=== PATIENT | female | born 1985 | race Caucasian/White ===

== ENCOUNTER 2017-04-11 22:06 | Emergency (ER) | payer OTHER, MEDICAID ==
[~2017-04-11] VITALS: Ht 162.6 cm; Wt 95.3 kg
[~2017-04-11 22:06] MED LIST: ACETAMINOPHEN-1 EAC1 PO; AFRIN15 ML NS; AMOXICILLIN500 M1 PO; ANTIVERT25 MG PO; ASPIR 8181 MG; AZITHROMYCIN 2250 MG PO; CEFDINIR300 MG PO; CEPHALEXIN 500500 M3 PO; DEPAKOTE125 MG; GEODON60 MG; NOHOMEMEDICATIONS; ONDANSETRON HCL4 M2 PO; PAXIL10 MG PO; PHENERGAN 25 MG25 M1 PO; PHENERGAN-CODE120 ML PO; PREDNISONE 20 M20 MG PO; TRAZODONE 150150 M1; TRINATE TABLET1 TAB; VITAMIN D400 UNI1
[2017-04-11 23:34] LABS: INFLUENZA A ANTIGEN None Detected (None Detect); INFLUENZA B ANTIGEN None Detected (None Detect)
[2017-04-11] MEDS ORDERED: PROMETHAZINE/C118 ML PO (23:40)
[2017-04-11 23:49] VITALS: BP 143/75
== END 2017-04-11 23:49 | disposition home or self-care (01) ==
LOC: M.ERS 22:06
PROVIDERS: Emergency Medicine
DX: J06.9 Acute upper respiratory infection, unspecified (principal); F17.210 Nicotine dependence, cigarettes, uncomplicated; F10.99 Alcohol use, unspecified with unspecified alcohol-induced disorder; F32.9 Major depressive disorder, single episode, unspecified; F41.9 Anxiety disorder, unspecified; Z90.49 Acquired absence of other specified parts of digestive tract; Z98.890 Other specified postprocedural states

== ENCOUNTER 2017-08-06 15:44 | Emergency (ER) | payer OTHER, MEDICAID ==
[~2017-08-06] VITALS: Ht 162.6 cm; Wt 96.6 kg
[~2017-08-06 15:44] MED LIST changes: +PROMETHAZINE/C118 ML PO
[2017-08-06] MEDS ORDERED: NAPROSYN500 M1 PO (16:47)
[2017-08-06] MEDS ORDERED: KEFLEX500 M1 PO (16:47)
[2017-08-06] MEDS ORDERED: BACTRIM DS TAB1 EACH PO (16:47)
[2017-08-06 17:23] VITALS: BP 123/79
== END 2017-08-06 17:24 | disposition left against medical advice (07) ==
LOC: M.ERS 15:44
DX: S91.012A Laceration without foreign body, left ankle, initial encounter (principal); F41.9 Anxiety disorder, unspecified; F32.9 Major depressive disorder, single episode, unspecified; F17.210 Nicotine dependence, cigarettes, uncomplicated; Z90.49 Acquired absence of other specified parts of digestive tract; X58.XXXA Exposure to other specified factors, initial encounter; Y93.89 Activity, other specified; Y92.89 Other specified places as the place of occurrence of the external cause; Y99.8 Other external cause status

== ENCOUNTER 2017-08-11 18:59 | Emergency (ER) | payer OTHER, MEDICAID ==
[~2017-08-11] VITALS: Ht 162.6 cm; Wt 97.5 kg
[~2017-08-11 18:59] MED LIST changes: +BACTRIM DS TAB1 EACH PO; +KEFLEX500 M1 PO; +NAPROSYN500 M1 PO
[2017-08-11 19:59] LABS: ABSOLUTE BASOPHILS 0.1 thou/uL (0.0-0.2); ABSOLUTE EOSINOPHILS 0.3 thou/uL (0.0-0.7); ABSOLUTE LYMPHOCYTES 1.7 thou/uL (0.8-5.3); ABSOLUTE MONOCYTES 0.8 thou/uL (0.0-1.2); ABSOLUTE NEUTROPHILS 7.7 thou/uL (1.6-8.1); BASOPHILS 0.5 %; EOSINOPHILS 2.4 %; HEMOGLOBIN 12.6 gm/dL (12.0-15.0); LYMPHOCYTES 16.4 %; MCH 27.4 pg (26.0-34.0); MCHC 34.1 g/dL (28.0-37.0); MCV 80.4 fL (80.0-100.0); MONOCYTES 7.6 %; MPV 7.9 fl. (7.2-11.1); NUCLEATED RBCS 0 /100WBC; PLATELET COUNT* 383 thou/uL (150-400); POLYS 73.1 %; RDW-CV 13.8 % (10.5-14.5); WBC 10.6 thou/uL (4.0-11.0)
[2017-08-11 20:04] LABS: CALCIUM 8.3 mg/dL (8.5-10.1); CREATININE 0.9 mg/dL (0.6-1.3)
[2017-08-11 20:06] LABS: POTASSIUM 2.7 mmol/L (3.5-5.1)
[2017-08-11 20:08] LABS: ALBUMIN 3.5 g/dL (3.4-5.0); TOTAL BILIRUBIN 0.5 mg/dL (<0.1-1.0); TOTAL PROTEIN 6.8 g/dL (6.4-8.2)
[2017-08-11] MEDS ORDERED: POTASSIUM20 PO (20:39)
[2017-08-11 21:12] VITALS: BP 129/69
== END 2017-08-11 21:13 | disposition home or self-care (01) ==
LOC: M.ERS 18:59
PROVIDERS: Nurse Practitioner Family
DX: S91.302A Unspecified open wound, left foot, initial encounter (principal); L08.9 Local infection of the skin and subcutaneous tissue, unspecified; E87.6 Hypokalemia; F17.210 Nicotine dependence, cigarettes, uncomplicated; F41.9 Anxiety disorder, unspecified; F32.9 Major depressive disorder, single episode, unspecified; Z90.49 Acquired absence of other specified parts of digestive tract; W26.8XXA Contact with other sharp object(s), not elsewhere classified, initial encounter; Y93.89 Activity, other specified; Y92.89 Other specified places as the place of occurrence of the external cause; Y99.8 Other external cause status

== ENCOUNTER 2017-08-16 13:00 | Emergency (ER) | payer OTHER, MEDICAID ==
[~2017-08-16] VITALS: Ht 162.6 cm; Wt 97.5 kg
[~2017-08-16 13:00] MED LIST changes: +POTASSIUM20 PO
[2017-08-16 15:37] VITALS: BP 120/67
== END 2017-08-16 15:38 | disposition home or self-care (01) ==
LOC: M.ERS 13:00
DX: S06.0X9A Concussion with loss of consciousness of unspecified duration, initial encounter (principal); F32.9 Major depressive disorder, single episode, unspecified; F41.9 Anxiety disorder, unspecified; F17.210 Nicotine dependence, cigarettes, uncomplicated; Z90.49 Acquired absence of other specified parts of digestive tract; W18.39XA Other fall on same level, initial encounter; Y93.89 Activity, other specified; Y92.89 Other specified places as the place of occurrence of the external cause; Y99.8 Other external cause status

== ENCOUNTER 2019-12-27 16:22 | Emergency (ER) | payer OTHER, MEDICAID ==
[~2019-12-27] VITALS: Ht 162.6 cm; Wt 117.9 kg
[2019-12-27] MEDS ORDERED: TRAMADOL 50 MG50 MG PO (16:43)
[2019-12-27] MEDS ORDERED: NAPROSYN500 MG PO (16:43)
[2019-12-27 16:52] VITALS: BP 125/70
== END 2019-12-27 16:53 | disposition home or self-care (01) ==
LOC: M.ERS 16:22
DX: S80.212A Abrasion, left knee, initial encounter (principal); S80.211A Abrasion, right knee, initial encounter; M70.862 Other soft tissue disorders related to use, overuse and pressure, left lower leg; M70.861 Other soft tissue disorders related to use, overuse and pressure, right lower leg; Z98.890 Other specified postprocedural states; Z98.51 Tubal ligation status; Z90.49 Acquired absence of other specified parts of digestive tract; F17.210 Nicotine dependence, cigarettes, uncomplicated; X50.9XXA Other and unspecified overexertion or strenuous movements or postures, initial encounter; Y93.89 Activity, other specified; Y92.89 Other specified places as the place of occurrence of the external cause; Y99.8 Other external cause status